=== PATIENT | female | born 1975 ===

== ENCOUNTER 2017-01-23 11:33 | Emergency (ER) | payer MEDICAID ==
[2017-01-23 11:43] VITALS: BP 98/60; PULSE 88; RESP 20; TEMP 97; O2SAT 98
--- NOTE | 2017-01-23 12:54 | ED PDOC ---
HPI: General Adult Time Seen by Provider: 01/23/17 12:01 Chief Complaint (Nursing): Med Refill Chief Complaint (Provider): Med Refill History Per: Patient History/Exam Limitations: no limitations Onset/Duration Of Symptoms: Days Current Symptoms Are (Timing): Still Present Severity: None Recently: Treated By A Physician Additional Complaint(s): Patient is a 41 year old female who presents to ED for refill of her Xanax. States she is unable to see a doctor till next week. Denies SI or HI. Patient denies nausea, vomiting, diarrhea, chest pain, fever, cough, dizziness or headache. Past Medical History Reviewed: Historical Data, Nursing Documentation, Vital Signs Vital Signs: Last Vital Signs Temp 97 F L 01/23/17 11:40 Pulse 88 01/23/17 11:40 Resp 20 01/23/17 11:40 BP 98/60 L 01/23/17 11:40 Pulse Ox 98 01/24/17 13:00 - Medical History PMH: Depression - Surgical History Surgical History: No Surg Hx - Family History Family History: States: Unknown Family Hx - Immunization History Hx Tetanus Toxoid Vaccination: (not up to date) - Home Medications Home Medications: Ambulatory Orders Medication Instructions Recorded Ibuprofen [Motrin] 1 tab PO TID PRN #30 tab 10/29/16 Alprazolam [Xanax] 2 mg PO PRN PRN #4 tab 01/22/17 - Allergies Allergies/Adverse Reactions: Allergies Allergy/AdvReac Type Severity Reaction Status Date / Time No Known Allergies Allergy Verified 01/23/17 11:40 Review of Systems ROS Statement: Except As Marked, All Systems Reviewed And Found Negative Constitutional: Negative for: Fever, Chills Cardiovascular: Negative for: Chest Pain Respiratory: Negative for: Shortness of Breath Gastrointestinal: Negative for: Nausea, Vomiting, Diarrhea Neurological: Negative for: Headache, Dizziness Physical Exam - Reviewed Nursing Documentation Reviewed: Yes Vital Signs Reviewed: Yes - Physical Exam Appears: Positive for: Non-toxic, No Acute Distress Skin: Positive for: Normal Color, Warm Eye Exam: Positive for: Normal appearance Neck: Positive for: Normal, Painless ROM Cardiovascular/Chest: Positive for: Regular Rate, Rhythm. Negative for: Murmur Respiratory: Positive for: Normal Breath Sounds. Negative for: Respiratory Distress Back: Positive for: Normal Inspection Extremity: Positive for: Normal ROM Neurologic/Psych: Positive for: Alert, Oriented, Mood/Affect (appriopriate ), Gait (normal). Negative for: Motor/Sensory Deficits, Aphasia, Facial Droop - ECG O2 Sat by Pulse Oximetry: 98 (RA) Pulse Ox Interpretation: Normal Medical Decision Making Medical Decision Making: Time: 1200 Initial impression: Med refill Initial plan: Previous charts reviewed: Patient was seen at [facility] yesterday and discharged given 2mg tablets x4, instructed to follow up. At this time patient states she made an appointment for next week but refuses to give doctors name or information for verification of appointment. When confronted about visit to [facility] yesterday patient initially denied the visit, until advised that we reviewed the chart, at this time patient admitted to the evaluation. [place]: Multiple prescription filled for suboxone by prescribed Kwesi Bui patient denies having any suboxone prescriptions filled- but states she takes it for back pain; she reports her doctor who writes her suboxone RXs refused to write her anymore prescriptions for xanax and she states she was told to follow up with psychiatry, xanax filled 01/05/2017- 30x1mg tabs 01/22- 4x2mg tabs; when asked why she did not follow up in the past month she states she just moved here , however she has visits in the past 2-3 years in this hospital. Patient exhibiting drug seeking behavior. she has had ample time to follow up with appropriate doctors since her last refill 01/05; she will need to follow up for continued care. She has no medical complaints, no SI or HI. she appears well. Educated patient on the importance of following up, discharged after discussing the case with Dr. Dumont who agreed with no new prescription. Scribe Attestation: Documented by mEiliana Price acting as a scribe for Giovani Meza PA-C. Scribe Attestation: All medical record entries made by the Scribe were at my direction and personally dictated by me. I have reviewed the chart and agree that the record accurately reflects my personal performance of the history, physical exam, medical decision making, and the department course for this patient. I have also personally directed, reviewed, and agree with the discharge instructions and disposition. Disposition - Clinical Impression Clinical Impression: Medication requested by patient but not prescribed or administered - Patient ED Disposition Is Patient to be Admitted: No Counseled Patient/Family Regarding: Need For Followup - Disposition Referrals: Raymundo Morris MD [Primary Care Provider] - [facility] [Outside] [facility] [Outside] Disposition: Routine/Home Disposition Time: 12:45 Condition: STABLE Additional Instructions: you need to follow up with the clinic, mental health clinic without fail return for any new concerns. Print Language: [id number]
== END 2017-01-23 13:46 | disposition home or self-care (01) ==
LOC: H.ER 11:33
DX: Z76.0 Encounter for issue of repeat prescription (principal)